=== PATIENT | female | born 1965 | race Caucasian/White ===

== ENCOUNTER 2018-12-31 16:38 | Observation (INO) | payer OTHER, SELFPAY ==
[2018-12-31] VITALS (7 sets, daily range): BP systolic 120–144; BP diastolic 64–93; PULSE 82–109; RESP 14–21; TEMP 36.4; O2SAT 91–100; BMI 42.2; BMI 41.8
[2018-12-31 17:20] LABS: Basophils # 0.1 K/mm3 (0-0.2); Basophils % 0.3 % (0.1-2.0); Eosinophils # 0.4 K/mm3 (0.0-0.4); Hematocrit 40.8 % (37.0-47.0); Hemoglobin 13.9 g/dL (12.2-16.2); Lymphocytes # 6.3 K/mm3 (0.7-4.5); Mean Corpuscular HGB Conc 34.1 g/dL (31.8-35.4); Mean Corpuscular Hemoglobin 28.3 pg (27.0-31.2); Mean Platelet Volume 7.5 fl (7.4-10.4); Monocytes # 0.6 K/mm3 (0.1-1.0); Monocytes % 3.1 % (1.7-9.3); Neutrophils # 11.3 K/mm3 (1.8-7.8); Neutrophils % 60.6 % (37.0-80.0); Platelet Count 498 K/mm3 (142-424); Red Blood Count 4.92 M/mm3 (4.20-5.40); Red Cell Distribution Width 14.1 % (11.5-17.5); White Blood Count 18.6 K/mm3 (4.8-10.8)
[2018-12-31 17:26] LABS: MANUAL DIFFERENTIAL MANUAL DIFFERENTIAL (MANUAL DIFF)
[2018-12-31 17:28] LABS: Alanine Aminotransferase 29 U/L (12-78); Albumin Level 3.5 gm/dL (3.4-5.0); Albumin/Globulin Ratio 0.8 (1.1-1.8); Alkaline Phosphatase 102 U/L (46-116); Anion Gap 17.6 mEq/L (5-15); Aspartate Amino Transferase 12 U/L (15-37); Bilirubin,Total 0.5 mg/dL (0.2-1.0); Blood Urea Nitrogen 8 mg/dL (7-18); Calcium 8.3 mg/dL (8.5-10.1); Carbon Dioxide 22 mmol/L (21.0-32.0); Chloride 102 mmol/L (98-107); Creatinine Clearance Estimated 74 mL/min (50-200); Estimated Glomerular Filt Rate 88 ml/min (>60); GFR (African American) 106 ML/MIN (>60); Globulin 4.2 gm/dl (1.3-3.2); Glucose 120 mg/dL (74-106); Lipase 122 u/L (73-393); Potassium 3.6 mmoL/L (3.5-5.1); Sodium 138 mmol/L (136-145); Total Protein,Serum 7.7 gm/dL (6.4-8.2)
[2018-12-31 17:28] LABS: Microscopic, Urine URINE MICROSCOPIC (MICROSCOPIC)
[2018-12-31 17:30] LABS: Appearance,Urine CLOUDY (Clear); Bilirubin,Urine Negative (Negative); Blood, Urine Negative (Negative); Color,Urine YELLOW (Yellow); Glucose,Urine (UA) Negative (Negative); Ketones,Urine TRACE (Negative); Leukocyte Esterase,Urine Negative (Negative); Nitrate,Urine Negative (Negative); PH,Urine 6.5 (5.0-8.5); Protein,Urine TRACE (Negative)
--- NOTE | 2018-12-31 17:33 | HMH.EDGENADL ---
ED Disposition Clinical Impression: Cholelithiasis Qualifiers: Cholelithiasis location: gallbladder Cholecystitis presence: with cholecystitis Cholecystitis acuity: acute Biliary obstruction: without biliary obstruction Qualified Code(s): K80.00 - Calculus of gallbladder with acute cholecystitis without obstruction Disposition: Admitted as Observation Condition on Discharge: Fair Additional Instructions: Stop taking Augmentin and start taking the Levaquin and Flagyl. Percocet as needed for pain. Follow-up with Dr. Kaplan and Marisela in the office tomorrow. Additional instructions for ABDOMINAL PAIN: Return immediately if worsening abdominal pain, vomiting, shortness of breath, fever, or jaundice. Additional instructions for CONTROLLED SUBSTANCES: You have been prescribed a medication that is a controlled substance. Controlled substances include pain medications known as opiates and sedative nerve medications known as benzodiazepines. Tramadol and gabapentin are also controlled substances. Some common opiates include: Codeine (such as Tylenol #3) Hydrocodone (Vicodin, Lortab, Lorcet, [place]) Oxycodone (Percocet, Percodan, Oxycodone, Oxy IR) Some common benzodiazepines include: Diazepam (Valium) Lorazepam (Ativan) Alprazolam (Xanax) Clonazepam (Klonopin) Oxazepam (Serax) All of these controlled substances are highly addictive and frequently abused. Misuse can and frequently does lead to addiction as well as overdose and . Medication should be stored in a locked cabinet or other secure storage unit. Do not store the medication in a motor vehicle. Short term supplies, 3 days or less, are prescribed because of the highly addictive nature of the medication. Any of the controlled substance medication NOT taken should be disposed of properly and NOT SAVED. The recommended method of disposing of unused medications is: Place the medicines in a sealable plastic bag. If the medicine is a solid, crush it or add water to dissolve it. Add something undesirable (cat litter, coffee grounds, etc.) Dispose of sealed bag in household trash Do not flush or pour unused medicines down a sink or drain. Controlled substances should not be shared, given away or sold. Because of the addictive nature and frequent abuse, these medications are sometimes stolen. These medications should be kept in a safe place where they cannot be stolen. Do not keep them in your car or purse. Lost or stolen prescriptions for controlled substances WILL NOT BE REFILLED in this emergency department, regardless of whether a police report was filed. Referrals: Provider,Referral, [Primary Care Provider] - - Critical Care Critical Care Time: No Attestation: On 12/31/18, the high probability of a clinically significant, sudden or life threatening deterioration of the following system(s) required my full and direct attention, intervention and personal management. The time I documented below is in addition to time spent performing reported procedures but includes the following listed in this critical care notation. Medical Decision Making - Frederick Inquiry Pt receiving controlled substance: Yes Frederick was queried for this patient: Yes Reference #:: [id number] Risks and benefits of using a controlled substance: were discussed with pt by me Comment: 1 rx 15 norco 7.5mg 05/02/18 Vital Signs: 12/31/18 16:46 12/31/18 17:09 12/31/18 18:26 Temperature 97.5 F L Temperature Source Oral Pulse Rate [Right Brachial] 109 H 92 H 92 H Respiratory Rate 15 19 18 Blood Pressure [Right Arm] 144/93 H 137/67 122/69 Blood Pressure Mean [Right Arm] 110 90 86 Blood Pressure Source [Right Arm] Automatic Cuff Automatic Cuff Automatic Cuff Blood Pressure Position [Right Arm] Sitting Sitting 02 Sat by Pulse Oximetry 98 95 94 L Oxygen Delivery Method Room Air Room Air Room Air 12/31/18 18:54 12/31/18 19:54 Temperature Temperature Source Pulse R
--- NOTE | 2018-12-31 17:35 | PC.NURSE ---
KANDY MCMAHON at bedside.
[2018-12-31 17:37] LABS: Bacteria,Urine 3+ /lpf; Squamous Epithelial Cell,Urine 20-50 #/hpf (0-5)
[2018-12-31 17:39] LABS: Lymphocytes % 29 % (10-50); Monocytes % 2 % (2-9); Neutrophils % 60 % (42-76); Platelet Estimate Slight Increase; RBC Morphology Normal; Total Cells Counted 100
--- NOTE | 2018-12-31 17:41 | CT_ITS ---
CT abdomen pelvis w con CLINICAL INDICATION: Epigastric pain with nausea ITS.REASON: abdominal pain ORDERING PHYSICIAN: Tom Estrada MD PATIENT AGE: 53 years COMPARISON: None TECHNIQUE: Axial images obtained with sagittal and coronal reformats. All CT scans at the facility use one or more dose reduction, viz: automated exposure control, ma/kV adjustment per patient size (including targeted exams where dose is matched to indication, i.e. head), or iterative reconstruction technique. PROCEDURE: Oral Contrast: None IV Contrast: 75 mL's Optiray 350. FINDINGS: Lower thorax: Minimal atelectatic change in the right middle lobe. ABDOMEN: There is a small amount of gas in distal esophagus and could be seen with reflux. The liver, spleen, adrenal glands, and pancreas have an unremarkable appearance. No renal or ureteral calculi. Suggesting stones and/or sludge. No evidence of appendicitis or diverticulitis. There are scattered fluid-filled loops of small bowel with a few air-fluid levels. There are some scattered air-fluid levels: Left. These loops are nondistended and could be due to enteritis. No pelvic mass abnormal fluid collection or focal inflammatory changes pelvis. No acute bony anomalies. IMPRESSION: 1. Possible enterocolitis. 2. Gallstones and/or gallbladder sludge.
--- NOTE | 2018-12-31 17:55 | PC.NURSE ---
Pt to radiology
--- NOTE | 2018-12-31 18:32 | PC.NURSE ---
paged microelectronics engineer surgeon @ this time
[2018-12-31 20:31] LABS: Troponin I < 0.02 ng/ml (0.00-0.06)
--- NOTE | 2018-12-31 21:39 | PC.NURSE ---
PT ARRIVED TO FLOOR VIA @ [phone]
[2019-01-01 04:00] VITALS: BP 103/56; PULSE 74; RESP 16; TEMP 36.6; O2SAT 93
--- NOTE | 2019-01-01 04:40 | PC.NURSE ---
Pt A&O x3. Resting in bed at this time. Has c/o N/V this shift. Was medicated per oct. Pt is currently NPO for AM consult. VSS at this time. Call light within reach. No other concerns at this time. Will continue to monitor.
[2019-01-01 05:21] VITALS: BMI 42.1
[2019-01-01 06:08] LABS: Basophils % 0.1 % (0.1-2.0); Eosinophils # 0.1 K/mm3 (0.0-0.4); Hematocrit 37.5 % (37.0-47.0); Hemoglobin 12.4 g/dL (12.2-16.2); Lymphocytes # 2.9 K/mm3 (0.7-4.5); Lymphocytes % 21.8 % (10-50); Mean Corpuscular HGB Conc 33.2 g/dL (31.8-35.4); Mean Corpuscular Hemoglobin 28.6 pg (27.0-31.2); Mean Corpuscular Volume 86.1 fl (81-99); Mean Platelet Volume 7.5 fl (7.4-10.4); Monocytes # 0.3 K/mm3 (0.1-1.0); Monocytes % 2.4 % (1.7-9.3); Neutrophils # 9.8 K/mm3 (1.8-7.8); Neutrophils % 74.6 % (37.0-80.0); Platelet Count 351 K/mm3 (142-424); Red Blood Count 4.35 M/mm3 (4.20-5.40); Red Cell Distribution Width 14.2 % (11.5-17.5); White Blood Count 13.1 K/mm3 (4.8-10.8)
[2019-01-01 06:21] LABS: Alanine Aminotransferase 55 U/L (12-78); Albumin Level 3.1 gm/dL (3.4-5.0); Albumin/Globulin Ratio 0.8 (1.1-1.8); Alkaline Phosphatase 117 U/L (46-116); Anion Gap 10.9 mEq/L (5-15); Aspartate Amino Transferase 38 U/L (15-37); Bilirubin,Total 0.5 mg/dL (0.2-1.0); Blood Urea Nitrogen 9 mg/dL (7-18); Carbon Dioxide 27 mmol/L (21.0-32.0); Chloride 105 mmol/L (98-107); Creatinine Clearance Estimated 91 mL/min (50-200); Estimated Glomerular Filt Rate 105 ml/min (>60); GFR (African American) 127 ML/MIN (>60); Globulin 3.8 gm/dl (1.3-3.2); Glucose 118 mg/dL (74-106); Lipase 143 u/L (73-393); Potassium 3.9 mmoL/L (3.5-5.1); Sodium 139 mmol/L (136-145); Total Protein,Serum 6.9 gm/dL (6.4-8.2)
[2019-01-01 06:41] LABS: Calcium 7.4 mg/dL (8.5-10.1)
--- NOTE | 2019-01-01 07:20 | HMH.PHAVTE ---
[facility] VTE Monitoring - Patient Demographics Admission date: 12/31/18 Report Date: 01/01/19 Time: 07:20 Allergies/Adverse Reactions: Patient Allergies No Known Allergies Allergy (Verified 12/31/18 16:56) Height: 1.6 m Weight: 108.012 kg Patient Problems: Current Active Problems (Updated 12/31/18 @ 18:44 by Tom Estrada MD) Cholelithiasis (Acute) - VTE Risk Labs: VTE Related Lab Results Hgb 12.4 g/dL (12.2-16.2) D 01/01/19 05:58 Hct 37.5 % (37.0-47.0) 01/01/19 05:58 Plt Count 351 K/mm3 (142-424) D 01/01/19 05:58 BUN 9 mg/dL (7-18) 01/01/19 05:58 Creatinine 0.60 mg/dL (0.55-1.02) 01/01/19 05:58 Estimated Creat Clear 91 mL/min (50-200) 01/01/19 05:58 VTE Score: 2 VTE Risk Level: Low Risk - Prophylaxis VTE Prophylaxis Ordered?: Yes Types of VTE Prophylaxis: TEDS Knee High Location of Applied Device: Bilateral Lower Extremeties - VTE Diagnosis Confirmed Treatment or plan recommended: Continue Current Treatment
[2019-01-01 08:00] VITALS: BP 113/58; PULSE 78; RESP 16; TEMP 36.7; O2SAT 100
--- NOTE | 2019-01-01 08:07 | HMH.GSCON ---
*Admission Date: 12/31/18 *Chief complaint: Abdominal pain *History of present illness: Patient is a pleasant 53-year-old female. She states that over the past month she has had episodes of epigastric pain. This occasionally radiates through to the back. It often occurs postprandially. It has usually been self-limited. However, yesterday she had developed the symptoms and they were much more severe. She was seen and evaluated in the emergency department. She underwent a CT scan with IV contrast which revealed findings of possible enterocolitis and gallstones. Initially consideration was being given for possible outpatient management however her symptoms were refractory and persistent and she was therefore admitted for inpatient management. She has had ongoing soreness in the epigastrium. She has not had any associated diarrhea. She has had some bloating and excessive belching. Review of Systems - Review of Systems Review of systems:: pertinent systems reviewed and negative unless documented below [facility] History Medical History: Denies:: Cancer, Diabetes Mellitus Type 1, Diabetes Mellitus Type 2, MRSA *Have you ever received a pneumonia vaccine?: No *Have you received a flu vaccine this season?: No Other Medical History: Reports: Sinus Problems Other Surgeries: Yes: Colonoscopy Amputation: No - *Social History Educational Level: Attended College Smoking Status: Former smoker Tobacco Type: cigarettes Alcohol Intake: never *Occupational Status:: employed Housing: house *Travel in the last 8 weeks: None - Psychiatric History Expresses thoughts of harming self/others: None Suicide Plan Description: No Plan Family Hx:: No significant family history Meds Home Medications Medication Instructions Recorded Confirmed Type Escitalopram Oxalate [Lexapro] 20 mg PO DAILY 12/31/18 12/31/18 History Allergies Allergy/AdvReac Type Severity Reaction Status Date / Time No Known Allergies Allergy Verified 12/31/18 16:56 Exam Vital signs and Labs for Last 24 Hours: Temp Pulse Resp BP Pulse Ox 97.9 F 74 16 103/56 L 93 L 01/01/19 04:00 01/01/19 04:00 01/01/19 04:00 01/01/19 04:00 01/01/19 04:00 Laboratory Results - last 24 hr 12/31/18 17:05: WBC 18.6 H, RBC 4.92, Hgb 13.9, Hct 40.8, MCV 83.0, MCH 28.3, MCHC 34.1, RDW 14.1, Plt Count 498 H, MPV 7.5, Neut % (Auto) 60.6, Lymph % (Auto) 34.0, Wise % (Auto) 3.1, Eos % (Auto) 2.0, Baso % (Auto) 0.3, Neut # (Auto) 11.3 H, Lymph # (Auto) 6.3 H, Wise # (Auto) 0.6, Eos # (Auto) 0.4, Baso # (Auto) 0.1, Total Counted 100, Neutrophils % (Manual) 60, Lymphocytes % (Manual) 29, Atypical Lymphs % 9.0, Monocytes % (Manual) 2, Platelet Estimate Slight increase, RBC Morphology Normal 12/31/18 17:05: Sodium 138, Potassium 3.6, Chloride 102, Carbon Dioxide 22, Anion Gap 17.6 H, BUN 8, Creatinine 0.70, Estimated Creat Clear 74, Estimated GFR 88, Est GFR ( Amer) 106, Glucose 120 H, Calcium 8.3 L, Total Bilirubin 0.5, AST 12 L, ALT 29, Alkaline Phosphatase 102, Total Protein 7.7, Albumin 3.5, Globulin 4.2 H, Albumin/Globulin Ratio 0.8 L, Lipase 122 12/31/18 17:05: Troponin I < 0.02 12/31/18 17:20: Urine Color Yellow, Urine Appearance Cloudy, Urine pH 6.5, Ur Specific [place] 1.020, Urine Protein Trace, Urine Glucose (UA) Negative, Urine Ketones Trace, Urine Blood Negative, Urine Nitrate Negative, Urine Bilirubin Negative, Urine Urobilinogen 1.0, Ur Leukocyte Esterase Negative, Urine WBC 5-10, Ur Squamous Epith Cells 20-50, Urine Bacteria 3+ 01/01/19 05:58: WBC 13.1 H D, RBC 4.35, Hgb 12.4 D, Hct 37.5, MCV 86.1, MCH 28.6, MCHC 33.2, RDW 14.2, Plt Count 351 D, MPV 7.5, Neut % (Auto) 74.6, Lymph % (Auto) 21.8, Wise % (Auto) 2.4, Eos % (Auto) 1.0, Baso % (Auto) 0.1, Neut # (Auto) 9.8 H, Lymph # (Auto) 2.9, Wise # (Auto) 0.3, Eos # (Auto) 0.1, Baso # (Auto) 0.0 01/01/19 05:58: Sodium 139, Potassium 3.9, Chloride 105, Carbon Dioxide 27 D, Anion Gap 10.9, BUN 9, Creatinine 0.60, Estimated Creat
--- NOTE | 2019-01-01 08:11 | P.CONS_ITS ---
*Admission Date: 12/31/18 *Chief complaint: Abdominal pain *History of present illness: Patient is a pleasant 53-year-old female. She states that over the past month she has had episodes of epigastric pain. This occasionally radiates through to the back. It often occurs postprandially. It has usually been self-limited. However, yesterday she had developed the symptoms and they were much more severe. She was seen and evaluated in the emergency department. She underwent a CT scan with IV contrast which revealed findings of possible enterocolitis and gallstones. Initially consideration was being given for possible outpatient management however her symptoms were refractory and persistent and she was therefore admitted for inpatient management. She has had ongoing soreness in the epigastrium. She has not had any associated diarrhea. She has had some bloating and excessive belching. Review of Systems - Review of Systems Review of systems:: pertinent systems reviewed and negative unless documented below [facility] History Medical History: Denies:: Cancer, Diabetes Mellitus Type 1, Diabetes Mellitus Type 2, MRSA *Have you ever received a pneumonia vaccine?: No *Have you received a flu vaccine this season?: No Other Medical History: Reports: Sinus Problems Other Surgeries: Yes: Colonoscopy Amputation: No - *Social History Educational Level: Attended College Smoking Status: Former smoker Tobacco Type: cigarettes Alcohol Intake: never *Occupational Status:: employed Housing: house *Travel in the last 8 weeks: None - Psychiatric History Expresses thoughts of harming self/others: None Suicide Plan Description: No Plan Family Hx:: No significant family history Meds Home Medications Medication Instructions Recorded Confirmed Type Escitalopram Oxalate [Lexapro] 20 mg PO DAILY 12/31/18 12/31/18 History Allergies Allergy/AdvReac Type Severity Reaction Status Date / Time No Known Allergies Allergy Verified 12/31/18 16:56 Exam Vital signs and Labs for Last 24 Hours: Temp Pulse Resp BP Pulse Ox 97.9 F 74 16 103/56 L 93 L 01/01/19 04:00 01/01/19 04:00 01/01/19 04:00 01/01/19 04:00 01/01/19 04:00 Laboratory Results - last 24 hr 12/31/18 17:05: WBC 18.6 H, RBC 4.92, Hgb 13.9, Hct 40.8, MCV 83.0, MCH 28.3, MCHC 34.1, RDW 14.1, Plt Count 498 H, MPV 7.5, Neut % (Auto) 60.6, Lymph % (Auto) 34.0, [place] % (Auto) 3.1, Eos % (Auto) 2.0, Baso % (Auto) 0.3, Neut # (Au to) 11.3 H, Lymph # (Auto) 6.3 H, [place] # (Auto) 0.6, Eos # (Auto) 0.4, Baso # (Auto) 0.1, Total Counted 100, Neutrophils % (Manual) 60, Lymphocytes % (Manual) 29, Atypical Lymphs % 9.0, Monocytes % (Manual) 2, Platelet Estimate Slight increase, RBC Morphology Normal 12/31/18 17:05: Sodium 138, Potassium 3.6, Chloride 102, Carbon Dioxide 22, Anion Gap 17.6 H, BUN 8, Creatinine 0.70, Estimated Creat Clear 74, Estimated GFR 88, Est GFR ( Amer) 106, Glucose 120 H, Calcium 8.3 L, Total Bilirubin 0.5, AST 12 L, ALT 29, Alkaline Phosphatase 102, Total Protein 7.7, Albumin 3.5, Globulin 4.2 H, Albumin/Globulin Ratio 0.8 L, Lipase 122 12/31/18 17:05: Troponin I < 0.02 12/31/18 17:20: Urine Color Yellow, Urine Appearance Cloudy, Urine pH 6.5, Ur Specific [place] 1.020, Urine Protein Trace, Urine Glucose (UA) Negative, Urine Ketones Trace, Urine Blood Negative, Urine Nitrate Negative, Urine Bilirubin Negative, Urine Urobilinogen 1.0, Ur Leukocyt
--- NOTE | 2019-01-01 08:11 | PC.NURSE ---
Pt c/o rash that was itching on BUE, BLE this am. Pt was assessed. Erythema and raised rash noted to upper arms and (R) leg, under knee. MD notified. Benadryl 25 mg IV ordered and administered.
--- NOTE | 2019-01-01 08:31 | US_ITS ---
US gallbladder HISTORY: ITS.REASON: upper abdominal pain with nausea and vomiting; ORDERING PHYSICIAN: Eufemia Lowe MD PATIENT AGE: 53 years Comparison: None FINDINGS: PANCREAS: Unremarkable. No obvious mass or abnormal fluid collection. No ductal dilatation LIVER: No focal liver lesions demonstrated. Homogeneous echogenicity. No intrahepatic biliary ductal dilatation evident RIGHT KIDNEY: Unremarkable. Normal size and echogenicity. No hydronephrosis GALLBLADDER: There are multiple gallstones present. No gallbladder wall thickening, pericholecystic fluid, or biliary dilatation is evident. Common bile duct is normal at 3 mm. The technologist reports a positive sonographic Jaimes sign. IMPRESSION: Cholelithiasis
--- NOTE | 2019-01-01 08:34 | HMH.HP ---
*Admission Date: 12/31/18 <PowersBrandy desai Constantino 01/01/19 08:43> *Chief complaint: Abdominal pain <PriyaBrandy 01/01/19 08:43> *History of present illness: Ms. Page is a 53-year-old female who is usually very healthy who presented to [facility] emergency room after experiencing severe right upper quadrant/epigastric pain. She states the pain was severe and radiated through to her back. This was associated with nausea and vomiting. She states she has been having bloating and periodic episodes of the epigastric pain for the past month. This was worse last week after eating a salad but then progressed yesterday. She was evaluated in the emergency room and had a CT scan with IV contrast which revealed possible enterocolitis and gallstones. Initially she was going to be treated on an outpatient basis but her symptoms continued and she was thus admitted for inpatient management. She receives her health care from a family physician in [facility]. In the emergency room she received a fluid bolus, IV Flagyl, Dilaudid , morphine, Toradol, and Zofran. She was then admitted with a surgical consult. This a.m. she has abdominal soreness and has vomited since being admitted. She denies diarrhea, constipation, hematemesis, bloody stools. She describes bloating with flatus and excessive belching. She states she did sleep some last night after receiving all the pain medicine. She remains n.p.o. and will have right upper quadrant ultrasound this a.m. She has been seen by surgeon Dr. Antonio. <Brandy Powers 01/01/19 08:56> [facility] History Medical History: Denies:: Atherosclerotic Heart Disease, Cancer, Chronic Obstructive Pulmonary Disease (COPD), Diabetes Mellitus Type 1, Diabetes Mellitus Type 2, MRSA <Brandy Powers 01/01/19 08:43> *Have you ever received a pneumonia vaccine?: No <Brandy Powers 01/01/19 08:43> *Have you received a flu vaccine this season?: No <Brandy Powers 01/01/19 08:43> Other Medical History: Reports: Sinus Problems. Denies: Arthritis <Brandy Powers 01/01/19 08:43> Comment:: environmental allergies <Brandy Powers /20/19 08:43> Other Surgeries: Yes: Colonoscopy <PriyaRbandy Constantino 01/01/19 08:43> Amputation: No <PriyaBrandy 01/01/19 08:43> - *Social History Educational Level: Attended College <Brandy Powers Constantino 01/01/19 08:43> Smoking Status: Former smoker <PriyaBrandy 01/01/19 08:43> Tobacco Type: cigarettes <PriyaBrandy 01/01/19 08:43> Alcohol Intake: never <PriyaBrandy Constantino 01/01/19 08:43> *Occupational Status:: employed <PriyaBrandy Constantino 01/01/19 08:43> Housing: house <PriyaBrandy 01/01/19 08:43> *Travel in the last 8 weeks: None <PowersBrandy Constantino 01/01/19 08:43> - Psychiatric History Expresses thoughts of harming self/others: None <Powers,Brandy - 01/01/19 08:43> Suicide Plan Description: No Plan <PriyaBrandy Constantino 01/01/19 08:43> Family Hx:: No significant family history <PowersBrandy Constantino 01/01/19 08:43> Review of Systems - Constitutional Denies fever(s) <PowersBrandy 01/01/19 08:43> - ENT Reports nasal congestion, Reports nasal discharge, Reports post nasal drip, Denies dizziness, Denies ear pain, Denies sore throat <PriyaBrandy 01/01/19 08:43> - *Cardiovascular Denies chest pain, Denies generalized swelling, Denies shortness of breath when lying down <Powers,Brandy - 01/01/19 08:43> - *Respiratory Denies chest congestion, Denies cough, Denies shortness of breath <PriyaBrandy 01/01/19 08:43> - *Gastrointestinal Reports abdominal pain, Reports belching, Reports bloating, Reports heartburn, Reports excessive passing of gas, Reports heartburn, Reports nausea, Reports vomiting, Denies change in bowel habits, Denies change in stools, Denies coffee ground vomit, Denies constipation, Denies loose stools, Denies difficulty swallowing, Denies incontinent of stools, Denies vomiting blood, Denies bright, red blood in stools, Denies loose
--- NOTE | 2019-01-01 08:40 | P.HP_ITS ---
*Admission Date: 12/31/18 <PowersBrandy desai Constantino 01/01/19 08:43> *Chief complaint: Abdominal pain <PriyaBrandy 01/01/19 08:43> *History of present illness: Ms. Page is a 53-year-old female who is usually very healthy who presented to [facility] emergency room after experiencing severe right upper quadrant/epigastric pain. She states the pain was severe and radiated through to her back. This was associated with nausea and vomiting. She states she has been having bloating and periodic episodes of the epigastric pain for the past month. This was worse last week after eating a salad but then progressed yesterday. She was evaluated in the emergency room and had a CT scan with IV contrast which revealed possible enterocolitis and gallstones. Initially she was going to be treated on an outpatient basis but her symptoms continued and she was thus admitted for inpatient management. She receives her health care from a family physician in [facility]. In the emergency room she received a fluid bolus, IV Flagyl, Dilaudid , morphine, Toradol, and Zofran. She was then admitted with a surgical consult. This a.m. she has abdominal soreness and has vomited since being admitted. She denies diarrhea, constipation, hematemesis, bloody stools. She describes bloating with flatus and excessive belching. She states she did sleep some last night after receiving all the pain medicine. She remains n.p.o. and will have right upper quadrant ultrasound this a.m. She has been seen by surgeon Dr. Antonio. <Brandy Powers 01/01/19 08:56> [facility] History Medical History: Denies:: Atherosclerotic Heart Disease, Cancer, Chronic Obstructive Pulmonary Disease (COPD), Diabetes Mellitus Type 1, Diabetes Mellitus Type 2, MRSA <Brandy Powers 01/01/19 08:43> *Have you ever received a pneumonia vaccine?: No <Brandy Powers 01/01/19 08:43> *Have you received a flu vaccine this season?: No <Brandy Powers 01/01/19 08:43> Other Medical History: Reports: Sinus Problems. Denies: Arthritis <Brandy Powers 01/01/19 08:43> Comment:: environmental allergies <Brandy Powers 01/01/19 08:43> Other Surgeries: Yes: Colonoscopy <Brandy Powers 01/01/19 08:43> Amputation: No <Brandy Powers 01/01/19 08:43> - *Social History Educational Level: Attended College <Powers,Brandy - 01/01/19 08:43> Smoking Status: Former smoker <Brandy Powers 01/01/19 08:43> Tobacco Type: cigarettes <Brandy Powers 01/01/19 08:43> Alcohol Intake: never <Brandy Powers 01/01/19 08:43> *Occupational Status:: employed <Brandy Powers 01/01/19 08:43> Housing: house <PowersBrandy desai 01/01/19 08:43> *Travel in the last 8 weeks: None <Brandy Powers 01/01/19 08:43> - Psychiatric History Expresses thoughts of harming self/others: None <Brandy Powers 01/01/19 08:43> Suicide Plan Description: No Plan <Brandy Powers 01/01/19 08:43> Family Hx:: No significant family history <Brandy Powers 01/01/19 08:43> Review of Systems - Constitutional Denies fever(s) <Brandy Powers 01/01/19 08:43> - ENT Reports nasal congestion, Reports nasal discharge, Reports post nasal drip, Denies dizziness, Denies ear pain, Denies sore throat <Brandy Powers 01/01/19 08:43> - *Cardiovascular Denies chest pain, Denies generalized swelling, Denies shortness of breath when lying down <Brandy Powers 01/01/19 08:43> - *Respiratory Denies chest congestion, Denies cough, Denies shortness of breath <Brandy Powers 01/01/19 08:43> - *Gastrointestinal Reports abdominal pain, Reports belching, Reports bloating, Reports heartburn, Reports excessive passing of gas
--- NOTE | 2019-01-01 10:23 | PC.NURSE ---
1015 patient taken to radiology per w/c for gallbladder u/s. returned via wheelchair without incident. patient ambulated to bed, denies pain or nausea at this time.
--- NOTE | 2019-01-01 10:44 | HMH.PHAINT ---
MEDICATION RECONCILIATION COMPLETED ON PATIENT USING EXTERNAL FILL HISTORY FROM PHARMACY AND PATIENT INTERVIEW. -CALI WALLACE, DAISYD
--- NOTE | 2019-01-01 12:10 | PC.NURSE ---
1100 patient reported increasing itching and rash with welts getting worse. red raised welts over several areas of the body, dr. rodas notiifed and new orders received and carried out. currently inflammation and itching decreased.
--- NOTE | 2019-01-01 12:29 | P.PN_ITS ---
Subjective Narrative: Patient's abdominal pain is persistent with occasional exacerbations. She underwent gallbladder ultrasound which reveals gallstones with normal common bile duct. She had a positive sonographic Jaimes's sign. Exam Vital signs and Labs for Last 24 Hours: Temp Pulse Resp BP Pulse Ox 98.0 F 78 16 113/58 L 100 01/01/19 08:00 01/01/19 08:00 01/01/19 08:00 01/01/19 08:00 01/01/19 08:00 Laboratory Results - last 24 hr 12/31/18 17:05: WBC 18.6 H, RBC 4.92, Hgb 13.9, Hct 40.8, MCV 83.0, MCH 28.3, MCHC 34.1, RDW 14.1, Plt Count 498 H, MPV 7.5, Neut % (Auto) 60.6, Lymph % (Auto) 34.0, [place] % (Auto) 3.1, Eos % (Auto) 2.0, Baso % (Auto) 0.3, Neut # (Auto) 11.3 H, Lymph # (Auto) 6.3 H, [place] # (Auto) 0.6, Eos # (Auto) 0.4, Baso # (Auto) 0.1, Total Counted 100, Neutrophils % (Manual) 60, Lymphocytes % (Manual) 29, Atypical Lymphs % 9.0, Monocytes % (Manual) 2, Platelet Estimate Slight increase, RBC Morphology Normal 12/31/18 17:05: Sodium 138, Potassium 3.6, Chloride 102, Carbon Dioxide 22, Anion Gap 17.6 H, BUN 8, Creatinine 0.70, Estimated Creat Clear 74, Estimated GFR 88, Est GFR ( Amer) 106, Glucose 120 H, Calcium 8.3 L, Total Bilirubin 0.5, AST 12 L, ALT 29, Alkaline Phosphatase 102, Total Protein 7.7, Albumin 3.5, Globulin 4.2 H, Albumin/Globulin Ratio 0.8 L, Lipase 122 12/31/18 17:05: Troponin I < 0.02 12/31/18 17:20: Urine Color Yellow, Urine Appearance Cloudy, Urine pH 6.5, Ur Specific [place] 1.020, Urine Protein Trace, Urine Glucose (UA) Negative, Urine Ketones Trace, Urine Blood Negative, Urine Nitrate Negative, Urine Bilirubin Negative, Urine Urobilinogen 1.0, Ur Leukocyte Esterase Negative, Urine WBC 5- 10, Ur Squamous Epith Cells 20-50, Urine Bacteria 3+ 01/01/19 05:58: WBC 13.1 H D, RBC 4.35, Hgb 12.4 D, Hct 37.5, MCV 86.1, MCH 28.6, MCHC 33.2, RDW 14.2, Plt Count 351 D, MPV 7.5, Neut % (Auto) 74.6, Lymph % (Auto) 21.8, [place] % (Auto) 2.4, Eos % (Auto) 1.0, Baso % (Auto) 0.1, Neut # (Auto) 9.8 H, Lymph # (Auto) 2.9, [place] # (Auto) 0.3, Eos # (Auto) 0.1, Baso # (Auto) 0.0 01/01/19 05:58: Sodium 139, Potassium 3.9, Chloride 105, Carbon Dioxide 27 D, Anion Gap 10.9, BUN 9, Creatinine 0.60, Estimated Creat Clear 91, Estimated GFR 105, Est GFR ( Amer) 127, Glucose 118 H, Calcium 7.4 L D, Total Bilirubin 0.5, AST 38 H D, ALT 55 D, Alkaline Phosphatase 117 H, Total Protein 6.9, Albumin 3.1 L D, Globulin 3.8 H, Albumin/Globulin Ratio 0.8 L, Lipase 143 I & O for Last 24 hours: Intake & Output 12/30/18 12/31/18 01/01/19 01/02/19 11:59 11:59 11:59 11:59 Intake Total 1250 / 1250 Balance 1250 / 1250 Weight 238 lb 2 oz - *Routine Abdominal Exam Present: tenderness Progress Note: A&P (1) Infectious colitis, enteritis and gastroenteritis Status: Acute Current Visit: Yes (2) Cholelithiasis Status: Acute Current Visit: Yes (3) Chronic cholecystitis Status: Acute Current Visit: Yes Assessment and Plan for All Diagnoses:: Patient has clinical cholecystitis. Plan to continue antibiotics today. She may have a clear liquid diet this afternoon if desired and tentatively plan for cholecystectomy tomorrow. Will plan to recheck liver function tests due to slight elevation since evaluation in the emergency department which may be secondary to hepatic irritation secondary to gallbladder inflammation.
--- NOTE | 2019-01-01 13:08 | PC.NURSE ---
123 patient c/o abdomenal pain, dilaudid given per order. patient rash and itching improving
--- NOTE | 2019-01-01 13:10 | PC.NURSE ---
1215 clarified continuation of abx since developing rash. continuation confirmed and will monitor closely
--- NOTE | 2019-01-01 14:09 | PC.NURSE ---
patient resting in bed with eyes closed, no inflammation, itching or pain noted at this time. instructed agin not to get out of bed without calling for assistance. patient voiced understanding. iv clean dry intact, no signs of infiltration
[2019-01-01 15:18] VITALS: BMI 42.2
[2019-01-01 16:00] VITALS: BP 113/51; PULSE 80; RESP 16; TEMP 36.8; O2SAT 91
--- NOTE | 2019-01-01 16:22 | PC.NURSE ---
surgical consent obtained and signed after confirming with patient that dr. miranda explained the procedure and risks. i had patient tell me in her own words what the procedure is going to consist of.
--- NOTE | 2019-01-01 19:19 | PC.NURSE ---
report given to billy
--- NOTE | 2019-01-01 19:30 | PC.NURSE ---
During bedside report, it was noted that pt's upper eyelids appeared to be slightly red, this is noted to be new per pt & Nancy Lr RN. Pt denies any facial itching of swelling, difficulty breathing or swallowing. Pt given a cold wash cloth and pt teaching given to pt for worsening s/s of reaction. Pt stated her understanding. Pt is due for a PO dose of benadryl prior to her IV ABX treatment for 2100 med pass.
[2019-01-01 20:00] VITALS: BP 114/51; PULSE 76; RESP 18; TEMP 36.2; O2SAT 93; O2SAT 98
--- NOTE | 2019-01-01 20:30 | PC.NURSE ---
Pt assessed and noted to have increased redness around eyes, edema to upper eyelid,edema and redness to upper lip, and tingling to lower lip and tongue. Pt denies any SOA, tongue edema or trouble swallowing. Dr. Mckeon lesson instructor for Dr. Lowe, new orders received to hold IV ABX for now, Levaquin & Flagyl IV. Give Benadryl 25mg IV 1x dose now, hold the PO dose. Pt medicated per MAR with topical to the scattered areas with itching, welts, and rash. VSS, pt given another cold wash cloth & has no other concerns at this time, will continue to monitor.
--- NOTE | 2019-01-01 20:55 | PC.NURSE ---
Pt reassessed at this time. Pt has no new c/o at this time. Edema to upper eyelid & upper lip is improving and pt denies any further tingling to lower lip & tongue. Will continue to monitor.
--- NOTE | 2019-01-01 22:45 | PC.NURSE ---
Pt c/o right hand swelling. Pt assessed and r hand noted to be slightly puffy from thumb to posterior hand. IV is in r hand, #20 with NS @ 125ml/hr running. IVF held at this time due to assessing of IV patency. There is no redness noted around the IV site or hand. near the hub it is tender to palpation but soft surrounding the site, no streaking or cold/heat noted in hand or in arm. Pt encouraged to keep hand elevated and on a pillow. Pt states that she is Very afraid of needles , and they had to stick me 3 times earlier and it about killed me . This RN stated her understanding of pt's concerns and fears. This RN explained to pt that we would flush the IV 1st and ensure the patency and if not would need to proceed with a new IV. Pt began to hold her breathe, pt encouraged to take slow deep breaths. Pt visibly anxious and upset, requesting the best you have to place her new IV. Pt assured that we will do the best we can and would look very carefully before using any needles. May GOMEZ s/w pt and assessed IV site and noted it to be patent but pt refusing IV fluids at this time. May Levine RN took over pt, report given at this time.
[2019-01-02] VITALS (27 sets, daily range): BP systolic 103–163; BP diastolic 53–76; PULSE 73–100; RESP 12–23; TEMP 36.1–45; O2SAT 90–95; BMI 43.2
--- NOTE | 2019-01-02 05:28 | PC.NURSE ---
PT ALERT AND ORIENTED. PT C/O ITCHING ON INNER THIGHS, ARMS, AND NECK. IV ABX NOT GIVEN LAST NIGHT PER DR. OLSON ORDER PT HAD SWELLING/TINGLING LIPS AND SOME PUFFINESS AROUND EYES. PT RECEIVED 25MG IV BENADRYL, COLD WASH CLOTH GIVEN. EYES AND LIPS BETTER, BUT STILL HAS REDNESS AND ITCHING, SO ONE TIME DOSE 50MG IV BENADRYL GIVEN. PT SLEPT WELL. PT IS VERY ANXIOUS ABOUT IV'S AND NEEDLES. IV REMAINS IN RIGHT HAND, # 20. FLUSHES WELL W/O REDNESS OR EDEMA, BUT FLUIDS ON HOLD TONIGHT PER PT'S REQUEST. PT SCHEDULED FOR [facility] ABOUT NOON TODAY. A.M. LABS ORDERED FOR TODAY WELL. CONSENT IS SIGNED AND ON CHART. NO C/O PAIN. RESPIRATIONS EVEN AND UNLABORED ON ROOM AIR. BREATH SOUNDS CLEAR. PT STABLE. WILL CONTINUE TO MONITOR. REPORT TO BE GIVEN TO ONCOMING NURSE.
--- NOTE | 2019-01-02 05:59 | PC.NURSE ---
0600 courtesy check; pt on right side asleep
--- NOTE | 2019-01-02 06:53 | HMH.GSPN ---
Subjective Narrative: Still with RUQ/epigastric pain. Patient complained of left eye and upper lip swelling followed by tingling. Antibiotics discontinued. Exam Vital signs and Labs for Last 24 Hours: Temp Pulse Resp BP Pulse Ox 98.2 F 81 18 117/57 L 92 L 01/02/19 04:00 01/02/19 04:00 01/02/19 04:00 01/02/19 04:00 01/02/19 04:00 I & O for Last 24 hours: Intake & Output 12/30/18 12/31/18 01/01/19 01/02/19 11:59 11:59 11:59 11:59 Intake Total 1250 / 1250 3045 / 3045 Balance 1250 / 1250 3045 / 3045 Weight 238 lb 2 oz 244 lb 4 oz Microbiology Reports for the Last 24 Hours: Microbiology 12/31/18 17:20 Urine,Clean Catch Urine Culture - Preliminary NO GROWTH AFTER 24 HOURS - Constitutional no acute distress - *Routine Abdominal Exam Present: soft, tenderness Progress Note: A&P (1) Infectious colitis, enteritis and gastroenteritis Status: Acute Current Visit: Yes (2) Cholelithiasis Status: Acute Current Visit: Yes (3) Chronic cholecystitis Status: Acute Current Visit: Yes Assessment and Plan for All Diagnoses:: Cholecystectomy today.
--- NOTE | 2019-01-02 06:57 | HMH.GSPN ---
Subjective Narrative: Sleeping Exam Vital signs and Labs for Last 24 Hours: Temp Pulse Resp BP Pulse Ox 98.2 F 81 18 117/57 L 92 L 01/02/19 04:00 01/02/19 04:00 01/02/19 04:00 01/02/19 04:00 01/02/19 04:00 I & O for Last 24 hours: Intake & Output 12/30/18 12/31/18 01/01/19 01/02/19 11:59 11:59 11:59 11:59 Intake Total 1250 / 1250 3045 / 3045 Balance 1250 / 1250 3045 / 3045 Weight 238 lb 2 oz 244 lb 4 oz Microbiology Reports for the Last 24 Hours: Microbiology 12/31/18 17:20 Urine,Clean Catch Urine Culture - Preliminary NO GROWTH AFTER 24 HOURS - Constitutional no acute distress Progress Note: A&P (1) Infectious colitis, enteritis and gastroenteritis Status: Acute Current Visit: Yes (2) Cholelithiasis Status: Acute Current Visit: Yes (3) Chronic cholecystitis Status: Acute Current Visit: Yes Assessment and Plan for All Diagnoses:: EGD today
[2019-01-02 07:36] LABS: Basophils % 0.1 % (0.1-2.0); Hematocrit 36.3 % (37.0-47.0); Hemoglobin 11.9 g/dL (12.2-16.2); Lymphocytes # 2.1 K/mm3 (0.7-4.5); Lymphocytes % 14.6 % (10-50); Mean Corpuscular HGB Conc 32.7 g/dL (31.8-35.4); Mean Corpuscular Hemoglobin 28.3 pg (27.0-31.2); Mean Corpuscular Volume 86.6 fl (81-99); Mean Platelet Volume 7.6 fl (7.4-10.4); Monocytes # 0.3 K/mm3 (0.1-1.0); Neutrophils # 11.8 K/mm3 (1.8-7.8); Neutrophils % 83.3 % (37.0-80.0); Platelet Count 366 K/mm3 (142-424); Red Blood Count 4.19 M/mm3 (4.20-5.40); Red Cell Distribution Width 14.2 % (11.5-17.5); White Blood Count 14.1 K/mm3 (4.8-10.8)
[2019-01-02 07:47] LABS: Alanine Aminotransferase 36 U/L (12-78); Albumin Level 2.8 gm/dL (3.4-5.0); Albumin/Globulin Ratio 0.8 (1.1-1.8); Alkaline Phosphatase 96 U/L (46-116); Amylase 29 U/L (25-115); Anion Gap 10.8 mEq/L (5-15); Aspartate Amino Transferase 10 U/L (15-37); Bilirubin,Total 0.4 mg/dL (0.2-1.0); Blood Urea Nitrogen 8 mg/dL (7-18); Calcium 7.8 mg/dL (8.5-10.1); Carbon Dioxide 27 mmol/L (21.0-32.0); Chloride 106 mmol/L (98-107); Creatinine Clearance Estimated 81 mL/min (50-200); Creatinine,Serum 0.64 mg/dL (0.55-1.02); Estimated Glomerular Filt Rate 97 ml/min (>60); GFR (African American) 118 ML/MIN (>60); Globulin 3.6 gm/dl (1.3-3.2); Glucose 147 mg/dL (74-106); Lipase 68 u/L (73-393); Potassium 3.8 mmoL/L (3.5-5.1); Sodium 140 mmol/L (136-145); Total Protein,Serum 6.4 gm/dL (6.4-8.2)
--- NOTE | 2019-01-02 08:48 | HMH.ACPN2 ---
<Brandy Powers - Last Filed: 01/02/19 08:49> Internal Medicine - PN: Subj *Date: 01/02/19 *Time: 08:49 Interval history: Patient is feeling better this morning. She states she vomits whenever she gets out of bed. She plans to take a shower this morning. Abdominal pain is less but still present requiring pain medicine which she just received. She was able to retain some clear liquids yesterday. Her allergic rash has resolved after Benadryl. She has been seen by Dr. Antonio and lap cholecystectomy is planned for this noon. Exam Vital signs and Labs for Last 24 Hours: Temp Pulse Resp BP Pulse Ox 97.7 F 73 18 105/53 L 93 L 01/02/19 08:00 01/02/19 08:00 01/02/19 08:00 01/02/19 08:00 01/02/19 08:00 Laboratory Results - last 24 hr 01/02/19 07:00: WBC 14.1 H, RBC 4.19 L, Hgb 11.9 L, Hct 36.3 L, MCV 86.6, MCH 28.3, MCHC 32.7, RDW 14.2, Plt Count 366, MPV 7.6, Neut % (Auto) 83.3 H, Lymph % (Auto) 14.6, [place] % (Auto) 2.0, Eos % (Auto) 0.0 L, Baso % (Auto) 0.1, Neut # (Auto) 11.8 H, Lymph # (Auto) 2.1, [place] # (Auto) 0.3, Eos # (Auto) 0.0, Baso # (Auto) 0.0 01/02/19 07:00: Sodium 140, Potassium 3.8, Chloride 106, Carbon Dioxide 27, Anion Gap 10.8, BUN 8, Creatinine 0.64, Estimated Creat Clear 81, Estimated GFR 97, Est GFR ( Amer) 118, Glucose 147 H, Calcium 7.8 L, Total Bilirubin 0.4, AST 10 L D, ALT 36 D, Alkaline Phosphatase 96, Total Protein 6.4, Albumin 2.8 L, Globulin 3.6 H, Albumin/Globulin Ratio 0.8 L, Amylase 29, Lipase 68 L I & O for Last 24 hours: Intake & Output 12/30/18 12/31/18 01/01/19 05/21/19 11:59 11:59 11:59 11:59 Intake Total 1250 / 1250 3055 / 3055 Balance 1250 / 1250 3055 / 3055 Weight 238 lb 2 oz 244 lb 4 oz Microbiology Reports for the Last 24 Hours: Microbiology 12/31/18 17:20 Urine,Clean Catch Urine Culture - Final Multiple organisms, suggests contamination. Radiology Reports for the Last 24 Hours: 01/01/2019 gallbladder ultrasound IMPRESSION: Cholelithiasis - Constitutional no acute distress Comments: Appears comfortable. Has just received pain medicine. - *Routine Respiratory Exam Present: CTA bilaterally (Anteriorly and posteriorly) - *Routine Cardiovascular Exam Present: RRR - *Routine Abdominal Exam Present: soft, normoactive bowel sounds, tenderness (Much less tender this morning with no guarding). Absent: guarding - *Routine Extremities Exam Absent: edema, calf tenderness - *Routine Neurological Exam Present: alert, oriented X3 Assessment and Plan (1) Infectious colitis, enteritis and gastroenteritis Current visit: Yes Status: Acute Category: Medical Code(s): A09 - Infectious gastroenteritis and colitis, unspecified (2) Cholelithiasis Current visit: Yes Status: Acute Category: Medical Code(s): K80.20 - Calculus of gallbladder without cholecystitis without obstruction (3) Chronic cholecystitis Current visit: Yes Status: Acute Category: Medical Code(s): K81.1 - Chronic cholecystitis - Assessment and plan all Dx Assessment and Plan for all problems:: Lap cholecystectomy planned for around 12 noon. <Eufemia Lowe - Last Filed: 01/02/19 10:06> Internal Medicine - PN: Subj *Date: 01/02/19 *Time: 10:04 Exam Vital signs and Labs for Last 24 Hours: Temp Pulse Resp BP Pulse Ox 97.7 F 73 18 105/53 L 93 L 01/02/19 08:00 01/02/19 08:00 01/02/19 08:00 01/02/19 08:00 01/02/19 08:00 Laboratory Results - last 24 hr 01/02/19 07:00: WBC 14.1 H, RBC 4.19 L, Hgb 11.9 L, Hct 36.3 L, MCV 86.6, MCH 28.3, MCHC 32.7, RDW 14.2, Plt Count 366, MPV 7.6, Neut % (Auto) 83.3 H, Lymph % (Auto) 14.6, [place] % (Auto) 2.0, Eos % (Auto) 0.0 L, Baso % (Auto) 0.1, Neut # (Auto) 11.8 H, Lymph # (Auto) 2.1, [place] # (Auto) 0.3, Eos # (Auto) 0.0, Baso # (Auto) 0.0 01/02/19 07:00: Sodium 140, Potassium 3.8, Chloride 106, Carbon Dioxide 27, Anion Gap 10.8, BUN 8, Creatinine 0.64, Estimat
--- NOTE | 2019-01-02 11:44 | PC.NURSE ---
pt transported to pre op at this time via bed
--- NOTE | 2019-01-02 13:20 | HMH.OPNOTE ---
Date of procedure: 01/02/19 Pre-op Diagnosis:: Symptomatic gallstones Post-op Diagnosis:: Same Procedure performed:: Laparoscopic cholecystectomy Surgeon:: Silviano Antonio MD Anesthesia: LANA Estimated blood loss (mL): 20 Clinical Note:: Patient is a pleasant 53-year-old female. She states that over the past month she has had episodes of epigastric pain. This occasionally radiates through to the back. It often occurs postprandially. It has usually been self-limited. However, 2 days ago she had developed these symptoms and they were much more severe. She was seen and evaluated in the emergency department. She underwent a CT scan with IV contrast which revealed findings of possible enterocolitis and gallstones. Initially consideration was being given for possible outpatient management however her symptoms were refractory and persistent and she was therefore admitted for inpatient management. She has had ongoing soreness in the epigastrium and right upper quadrant. She has not had any associated diarrhea. She has had some bloating and excessive belching. She underwent gallbladder ultrasound yesterday which revealed multiple gallstones with normal common bile duct. Her symptoms persisted and plan was made to proceed with laparoscopic possibly open cholecystectomy. Operative findings:: She had a somewhat enlarged somewhat fatty liver. She had a significantly distended gallbladder which was edematous. There were multiple moderate sized gallstones. Operative note:: Consent was obtained and patient was taken to the operating room. She was given preoperative intravenous antibiotics. In the operating room she was placed in a supine position. General anesthesia was induced via endotracheal tube. Her abdomen was prepped and draped in the standard surgical fashion. Subumbilical skin incision was made and while performing abdominal wall lift Veress needle was inserted. CO2 pneumoperitoneum was achieved to 15 mmHg. 11 mm optical trocar was inserted at the umbilicus. She was positioned in reverse Trendelenburg left side down. A couple of 5 mm trochars were inserted in the right upper abdomen. 10 mm trocar was inserted in the epigastrium. She had a somewhat enlarged liver which was somewhat fatty. Gallbladder was identified and grasped and retracted anteriorly over the dome of the liver. Gallbladder was appreciably distended and somewhat edematous. There were some omental adhesions to the gallbladder which were taken down using blunt dissection. The infundibulum of the gallbladder was retracted anterior laterally. Blunt dissection was carried out at the neck of the gallbladder. The cystic duct was ultimately identified, isolated. It was dissected free. Cystic duct was multiply clipped and then divided. Cystic artery was carefully coagulated with DYANA ultrasonic harmonic luisana and divided. Gallbladder was dissected free from the liver in a retrograde fashion using DYANA ultrasonic harmonic luisana. Gallbladder was placed within an Endo Catch retrieval device and removed from the peritoneal cavity via the umbilical trocar site which required some stretching of the fascia for delivery of the distended gallbladder with multiple stones. Gallbladder fossa was then irrigated and aspirated until clear. There appeared to be good hemostasis. Trochars were removed as CO2 pneumoperitoneum was evacuated. Fascia at the umbilicus was closed with several interrupted 0 Vicryl sutures. Local anesthetic was infiltrated. Skin was closed with 4-0 Monocryl in subcuticular fashion. Steri-Strips and dressings were applied. Patient tolerated procedure well with no immediate complications. Condition: stable Disposition: PACU Specimens:: Gallbladder and contents Complications:: None immediately apparent
--- NOTE | 2019-01-02 13:34 | HMH.ANESII ---
[facility] Anesthesia Record Part II Discharge Time: 14:00 Destination: Medical Surgical Department PACU nurse assessment reviewed?: Yes Patient Condition:: Good Anesthesia Complications:: None Swallowing reflex intact?: Yes Cyanosis?: No
--- NOTE | 2019-01-02 13:35 | P.PN_ITS ---
[facility] Anesthesia Record Part I Intake, IV Amount: 1,000 Estimated blood loss (mL): 10 Urine output (mL): 0 Blood Products used (#): none Blood Pressure: 136/68 SaO2: 93 Pulse Rate: 99 Respiratory Rate: 18 Temperature: 98.0 F Patient is:: Drowsy, Nasal O2, Stable Stable to PACU at:: 13:30
[2019-01-02 14:23] LABS: HIV AB(1/2) Exposures Non-Reactive (Non-Reactiv)
--- NOTE | 2019-01-02 15:33 | SUR.PHASEI ---
1340: pt wakes enough to ask where she is, ask if she's had surgery, no c/o pain, and then falls back to sleep
--- NOTE | 2019-01-02 17:42 | PC.NURSE ---
pt has had no changes from previous assessment besides new incision sites. pt has stated no pain since arrival back to floor. incision sites are dressed with scant amount of drainage noted. v/s/s. pt is currently on 3LNC with o2 sat in low 90's. pt has been instructed on deep breathing and coughing. iv patent and infusing per order. call light in reach. pt has been eating and drinking and tolerating well. will continue to monitor pt condition
--- NOTE | 2019-01-02 18:57 | PC.NURSE ---
pt reporting pain in upper abdomen. prn med given per oct. pt educated on pain control and deep breathing and cough. pt is belching frequently.
--- NOTE | 2019-01-02 21:24 | PC.NURSE ---
2100 courtesy check, pt supine awake, took vanilla pudding for a snack, no other needs voiced
[2019-01-03 00:01] VITALS: BP 117/55; PULSE 74; RESP 18; TEMP 36.3; O2SAT 94
[2019-01-03 04:00] VITALS: BP 122/58; PULSE 61; RESP 18; TEMP 36.8; O2SAT 91; BMI 43.2
--- NOTE | 2019-01-03 06:14 | PC.NURSE ---
PT ALERT AND ORIENTED. C/O PAIN WITH PAIN MEDS GIVEN 3 TIMES THIS SHIFT OF THIS TIME. NO C/O NAUSEA. DID C/O SOME ITCHING ON HER NECK ONCE LAST NIGHT, BUT NO WHELPS NOTED. ALSO, PREVIOUS WHELPS THAT WERE ON BILATERAL INNER THIGHS ARE BARELY NOTICEABLE. PT REFUSED CREAM FOR ITCHING LAST NIGHT. STATED SHE DIDN'T THINK SHE NEEDED IT. IV SECURE AND PATENT. INFUSING NS@ 125/HR. ALSO CONTINUES ON IV ABX. PT DOES NOT HAVE ANY LABS ORDERED FOR THIS A.M. PT HAS BEEN BELCHING A LOT, PASSING SOME GAS. ABDOMINAL DSGS X4 FROM LAP [facility] YESTERDAY ARE C/D/I. PT RESPIRATIONS EVEN AND UNLABORED ON ROOM AIR. BREATH SOUNDS EQUAL AND CLEAR THROUGHOUT. PT STABLE. STATES SHE THINKS SHE MAY GET TO GO HOME TODAY. WILL CONTINUE TO MONITOR. REPORT TO BE GIVEN TO ONCOMING NURSE.
--- NOTE | 2019-01-03 06:33 | PC.NURSE ---
0600 courtesy check, pt supine asleep
--- NOTE | 2019-01-03 07:20 | PC.NURSE ---
REPORT GIVEN TO Bonifacio SHEARER
--- NOTE | 2019-01-03 07:24 | HMH.GSPN ---
Subjective Patient reports: feels better Narrative: Patient states that she feels much better. She has been tolerating a diet. Exam Vital signs and Labs for Last 24 Hours: Temp Pulse Resp BP Pulse Ox 98.2 F 61 18 122/58 L 91 L 01/03/19 04:00 01/03/19 04:00 01/03/19 04:00 01/03/19 04:00 01/03/19 04:00 Laboratory Results - last 24 hr 01/02/19 07:00: WBC 14.1 H, RBC 4.19 L, Hgb 11.9 L, Hct 36.3 L, MCV 86.6, MCH 28.3, MCHC 32.7, RDW 14.2, Plt Count 366, MPV 7.6, Neut % (Auto) 83.3 H, Lymph % (Auto) 14.6, [place] % (Auto) 2.0, Eos % (Auto) 0.0 L, Baso % (Auto) 0.1, Neut # (Auto) 11.8 H, Lymph # (Auto) 2.1, [place] # (Auto) 0.3, Eos # (Auto) 0.0, Baso # (Auto) 0.0 01/02/19 07:00: Sodium 140, Potassium 3.8, Chloride 106, Carbon Dioxide 27, Anion Gap 10.8, BUN 8, Creatinine 0.64, Estimated Creat Clear 81, Estimated GFR 97, Est GFR ( Amer) 118, Glucose 147 H, Calcium 7.8 L, Total Bilirubin 0.4, AST 10 L D, ALT 36 D, Alkaline Phosphatase 96, Total Protein 6.4, Albumin 2.8 L, Globulin 3.6 H, Albumin/Globulin Ratio 0.8 L, Amylase 29, Lipase 68 L 01/02/19 13:50: HIV 1&2 Antibody Rapid Non-reactive I & O for Last 24 hours: Intake & Output 12/31/18 01/01/19 01/02/19 01/03/19 11:59 11:59 11:59 11:59 Intake Total 1250 / 1250 3155 / 3155 4349 / 4349 Balance 1250 / 1250 3155 / 3155 4349 / 4349 Weight 238 lb 2 oz 244 lb 4 oz 244 lb 4.002 oz Microbiology Reports for the Last 24 Hours: Microbiology 12/31/18 17:20 Urine,Clean Catch Urine Culture - Final Multiple organisms, suggests contamination. - *Routine Abdominal Exam Present: soft Comments: Dressings are intact. She has some incisional soreness at the umbilical incision. Progress Note: A&P (1) Infectious colitis, enteritis and gastroenteritis Status: Acute Current Visit: Yes (2) Cholelithiasis Status: Acute Current Visit: Yes (3) Chronic cholecystitis Status: Acute Current Visit: Yes Assessment and Plan for All Diagnoses:: Discharge home
--- NOTE | 2019-01-03 07:30 | HMH.DCSUM ---
General - General Admission date:: 12/31/18 Discharge date: 01/03/19 HPI HPI: Ms. Page is a 53-year-old female who is usually very healthy who presented to [facility] emergency room after experiencing severe right upper quadrant/epigastric pain. She states the pain was severe and radiated through to her back. This was associated with nausea and vomiting. She states she has been having bloating and periodic episodes of the epigastric pain for the past month. This was worse last week after eating a salad but then progressed yesterday. She was evaluated in the emergency room and had a CT scan with IV contrast which revealed possible enterocolitis and gallstones. Initially she was going to be treated on an outpatient basis but her symptoms continued and she was thus admitted for inpatient management. She receives her health care from a family physician in [facility]. In the emergency room she received a fluid bolus, IV Flagyl, Dilaudid , morphine, Toradol, and Zofran. She was then admitted with a surgical consult. She had persistent abdominal soreness and had vomited after being admitted. She denies diarrhea, constipation, hematemesis, bloody stools. She describes bloating with flatus and excessive belching. Of note, the patient has been treated with oral antibiotics for a dental abscess. Hospital Course Hospital Course: Patient was admitted for inpatient management from the emergency department. She was started on intravenous levofloxacin and metronidazole. She had persistent epigastric and right upper quadrant pain radiating through to her back with belching and some nausea. She underwent gallbladder ultrasound on 01/01/2019. This revealed multiple gallstones with normal common bile duct. There was a positive sonographic Jaimes sign. No sonographic evidence of acute cholecystitis. Was felt that she likely had clinical cholecystitis as well as findings of cholecystitis based on a persistent leukocytosis. In the evening of 01/01/2019 she had developed some itching and swelling of her lips. Her antibiotics were discontinued. On 01/02/2019 she was taken to the operating room at which time she underwent laparoscopic cholecystectomy. She was found to have a distended edematous but noninfected gallbladder. Please see operative dictation for complete details. Postoperatively she was admitted for inpatient convalescence. She did have some itching on her inner thighs and her shoulder area but this resolved with topical steroid. She was given a bland diet. She tolerated this well without any difficulty. The following morning she was feeling much better. She was tolerating a bland diet without issue. She had essential resolution of the epigastric right upper quadrant pain but had incisional soreness. Plan was made for discharge home at this time. Objective Vital signs: Temp Pulse Resp BP Pulse Ox 98.2 F 61 18 122/58 L 91 L 01/03/19 04:00 01/03/19 04:00 01/03/19 04:00 01/03/19 04:00 01/03/19 04:00 - *Routine Abdominal Exam Present: soft Comments: Some incisional tenderness. - Detailed Eye Exam Eyelids: Left normal inspection Results Labs on day of discharge: Labs from last 24 hours 01/02/19 01/02/19 01/02/19 13:50 07:00 07:00 WBC 14.1 H RBC 4.19 L Hgb 11.9 L Hct 36.3 L MCV 86.6 MCH 28.3 MCHC 32.7 RDW 14.2 Plt Count 366 MPV 7.6 Neut % (Auto) 83.3 H Lymph % (Auto) 14.6 [place] % (Auto) 2.0 Eos % (Auto) 0.0 L Baso % (Auto) 0.1 Neut # (Auto) 11.8 H Lymph # (Auto) 2.1 [place] # (Auto) 0.3 Eos # (Auto) 0.0 Baso # (Auto) 0.0 Sodium 140 Potassium 3.8 Chloride 106 Carbon Dioxide 27 Anion Gap 10.8 BUN 8 Creatinine 0.64 Estimated Creat Clear 81 Estimated GFR 97 Est GFR ( Amer) 118 Glucose 147 H Calcium 7.8 L Total Bilirubin 0.4 AST 10 L D ALT
--- NOTE | 2019-01-03 07:35 | P.DS_ITS ---
General - General Admission date:: 12/31/18 Discharge date: 01/03/19 HPI HPI: Ms. Page is a 53-year-old female who is usually very healthy who presented to [facility] emergency room after experiencing severe right upper quadrant/epigastric pain. She states the pain was severe and radiated through to her back. This was associated with nausea and vomiting. She states she has been having bloating and periodic episodes of the epigastric pain for the past month. This was worse last week after eating a salad but then progressed yesterday. She was evaluated in the emergency room and had a CT scan with IV contrast which revealed possible enterocolitis and gallstones. Initially she was going to be treated on an outpatient basis but her symptoms continued and she was thus admitted for inpatient management. She receives her health care from a family physician in [place]. In the emergency room she received a fluid bolus, IV Flagyl, Dilaudid , morphine, Toradol, and Zofran. She was then admitted with a surgical consult. She had persistent abdominal soreness and had vomited after being admitted. She denies diarrhea, constipation, hematemesis, bloody stools. She describes bloating with flatus and excessive belching. Of note, the patient has been treated with oral antibiotics for a dental abscess. Hospital Course Hospital Course: Patient was admitted for inpatient management from the emergency department. She was started on intravenous levofloxacin and metronidazole. She had persistent epigastric and right upper quadrant pain radiating through to her back with belching and some nausea. She underwent gallbladder ultrasound on 01/01/2019. This revealed multiple gallstones with normal common bile duct. There was a positive sonographic Jaimes sign. No sonographic evidence of acute cholecystitis. Was felt that she likely had clinical cholecystitis as well as findings of cholecystitis based on a persistent leukocytosis. In the evening of 01/01/2019 she had developed some itching and swelling of her lips. Her antibiotics were discontinued. On 01/02/2019 she was taken to the operating room at which time she underwent laparoscopic cholecystectomy. She was found to have a distended edematous but noninfected gallbladder. Please see operative dictation for complete details. Postoperatively she was admitted for inpatient convalescence. She did have some itching on her inner thighs and her shoulder area but this resolved with topical steroid. She was given a bland diet. She tolerated this well without any difficulty. The following morning she was feeling much better. She was tolerating a bland diet without issue. She had essential resolution of the epigastric right upper quadrant pain but had incisional soreness. Plan was made for discharge home at this time. Objective Vital signs: Temp Pulse Resp BP Pulse Ox 98.2 F 61 18 122/58 L 91 L 01/03/19 04:00 01/03/19 04:00 01/03/19 04:00 01/03/19 04:00 01/03/19 04:00 - *Routine Abdominal Exam Present: soft Comments: Some incisional tenderness. - Detailed Eye Exam Eyelids: Left normal inspection Results Labs on day of discharge: Labs from last 24 hours 01/02/19 01/02/19 01/02/19 13:50 07:00 07:00 WBC 14.1 H RBC 4.19 L Hgb 11.9 L Hct 36.3 L MCV 86.6 MCH 28.3 MCHC 32.7 RDW 14.2
[2019-01-03 07:55] VITALS: BP 126/58; PULSE 78; RESP 15; TEMP 36.8; O2SAT 94
[2019-01-03 08:18] LABS: HIV Screen 4th Generation wRfx Non Reactive (Non Reactive); Hepatitis B Surface Antigen Negative (Negative)
--- NOTE | 2019-01-03 08:47 | HMH.ACPN2 ---
<Brandy Powers - Last Filed: 01/03/19 08:47> Internal Medicine - PN: Subj *Date: 01/03/19 *Time: 08:47 Interval history: Patient had lap cholecystectomy yesterday. She ate last night and this morning and did well without nausea, vomiting or abdominal pain. She denies chest pain and shortness of breath. She has ambulated to the bathroom without difficulty. She did sleep some last night. She is ready to go home. Exam Vital signs and Labs for Last 24 Hours: Temp Pulse Resp BP Pulse Ox 98.2 F 78 15 126/58 L 94 L 01/03/19 07:55 01/03/19 07:55 01/03/19 07:55 01/03/19 07:55 01/03/19 07:55 Laboratory Results - last 24 hr 01/02/19 13:50: HIV 1&2 Antibody Rapid Non-reactive I & O for Last 24 hours: Intake & Output 12/31/18 01/01/19 01/02/19 01/03/19 11:59 11:59 11:59 11:59 Intake Total 1250 / 1250 3155 / 3155 4589 / 4589 Balance 1250 / 1250 3155 / 3155 4589 / 4589 Weight 238 lb 2 oz 244 lb 4 oz 244 lb 4.002 oz Microbiology Reports for the Last 24 Hours: Microbiology 12/31/18 17:20 Urine,Clean Catch Urine Culture - Final Multiple organisms, suggests contamination. - Constitutional no acute distress - *Routine Respiratory Exam Present: CTA bilaterally (Anteriorly and posteriorly) - *Routine Cardiovascular Exam Present: RRR - *Routine Abdominal Exam Present: soft, normoactive bowel sounds. Absent: distended Comments: 3 dressings intact and dry. - *Routine Extremities Exam Absent: edema, calf tenderness - *Routine Neurological Exam Present: alert, oriented X3 Assessment and Plan (1) Infectious colitis, enteritis and gastroenteritis Current visit: Yes Status: Acute Category: Medical Code(s): A09 - Infectious gastroenteritis and colitis, unspecified (2) Cholelithiasis Current visit: Yes Status: Acute Qualifiers: Cholelithiasis location: gallbladder Cholecystitis presence: with cholecystitis Cholecystitis acuity: acute Biliary obstruction: without biliary obstruction Qualified Code(s): K80.00 - Calculus of gallbladder with acute cholecystitis without obstruction Category: Medical Code(s): K80.20 - Calculus of gallbladder without cholecystitis without obstruction (3) Chronic cholecystitis Current visit: Yes Status: Acute Category: Medical Code(s): K81.1 - Chronic cholecystitis - Assessment and plan all Dx Assessment and Plan for all problems:: Will be discharged today. See orders. <Eufemia Lowe - Last Filed: 01/03/19 08:58> Internal Medicine - PN: Subj *Date: 01/03/19 *Time: 08:58 Exam Vital signs and Labs for Last 24 Hours: Temp Pulse Resp BP Pulse Ox 98.2 F 78 15 126/58 L 94 L 01/03/19 07:55 01/03/19 07:55 01/03/19 07:55 01/03/19 07:55 01/03/19 07:55 Laboratory Results - last 24 hr 01/02/19 13:50: HIV 1&2 Antibody Rapid Non-reactive I & O for Last 24 hours: Intake & Output 12/31/18 01/01/19 01/02/19 01/03/19 11:59 11:59 11:59 11:59 Intake Total 1250 / 1250 3155 / 3155 4589 / 4589 Balance 1250 / 1250 3155 / 3155 4589 / 4589 Weight 238 lb 2 oz 244 lb 4 oz 244 lb 4.002 oz Microbiology Reports for the Last 24 Hours: Microbiology 12/31/18 17:20 Urine,Clean Catch Urine Culture - Final Multiple organisms, suggests contamination. Assessment and Plan (1) Infectious colitis, enteritis and gastroenteritis Current visit: Yes Status: Acute Category: Medical Code(s): A09 - Infectious gastroenteritis and colitis, unspecified (2) Cholelithiasis Current visit: Yes Status: Acute Qualifiers: Cholelithiasis location: gallbladder Cholecystitis presence: with cholecystitis Cholecystitis acuity: acute Biliary obstruction: without biliary obstruction Qualified Code(s): K80.00 - Calculus of gallbladder with acute cholecystitis without obstruction Category: Medical Code(s): K80.20 - Calculus of
[2019-01-03 10:07] LABS: Hep B Core Ab, Total Negative (Negative); Hepatitis C Antibody 0.8 s/co ratio (0.0-0.9)
--- NOTE | 2019-01-03 15:51 | HMH.PHAINT ---
DISCHARGE COUNSELING--PATIENT COUNSELED ON D/C MEDICATIONS
== END 2019-01-03 09:28 | disposition home or self-care (01) ==
LOC: ER 20:05 → 2ND 20:15
PROVIDERS: Surgery; Admitting Provider Emergency Medicine; Emergency Provider Emergency Medicine; Visit Provider Emergency Medicine
PROC: 0FT44ZZ Resection of Gallbladder, Percutaneous Endoscopic Approach (ICD-10-PCS; CPT 47562; principal; 2019-01-02 12:00)
DX: K80.10 Calculus of gallbladder with chronic cholecystitis without obstruction (principal); A09 Infectious gastroenteritis and colitis, unspecified; K04.7 Periapical abscess without sinus; L29.9 Pruritus, unspecified; R22.0 Localized swelling, mass and lump, head; Z87.891 Personal history of nicotine dependence; Z79.899 Other long term (current) drug therapy; Z87.440 Personal history of urinary (tract) infections
CPT/HCPCS: 47562; 36415; 74177; 76705; 80053; 81001; 82150; 83690; 84484; 85007; 85025; 86703; 86704; 87086; 87340; 87380; 93005; 96365; 96366; 96375; 96376; 99284; G0378; G0432; J1956; J2405; J2710; Q9967

== ENCOUNTER → 2019-02-28 09:19 | Outpatient (CLI) | payer OTHER, SELFPAY ==
--- NOTE | 2019-02-28 09:23 | MM_ITS ---
MM Dig screening mamm BI w/CAD ORDERING PHYSICIAN : Eufemia Lowe MD PATIENT AGE: 54 years GENDER: Female COMPARISON: Prior studies from [facility] Bilateral mammogram October 2016 INDICATION: Routine: SCREENING. No hormones no new complaints noncontributory family history. TECHNIQUE: Standard CC and MLO images were obtained. R2 CAD reviewed. FINDINGS: Lower density breast with residual minimal fibroglandular elements bilateral. RIGHT BREAST: The small smooth 5 mm nodular density at the lateral right breast are similar to previous outside mammograms-. No change here... This area labeled A Also at the lateral breast on today's cc view only there is a 6 mm less well-defined nodular density laterally with slight irregular margins. This seems to dissipates on the MLO view. There is a density was seen previous outside cc view but was projected much more lateral due on the prior study likely due to differences in positioning/ projection & likely due to its more superior location. When differences technique and projection are considered probably these areas are stable. However suggest follow-up to confirm stable. No new Of significant concern.. LEFT BREAST:Stable appearance with no new areas of concern. IMPRESSION: .............................. 1.... Left mammogram. Unremarkable. Follow-up mammogram in one year 2.... Right mammogram:. Suggest follow right mammogram 6 months Small focal areas density lateral right breast labeled B, strongly favor most likely a stable minimal density compared to previous studies. However significant different position on cc view likely due to due variations of positioning/projection & technique. Thus to better confirm stability, given its slightly different position and slight irregular margins suggest 6-8 month follow-up right mammogram. BI-RADS Category: 3 Probably Benign Finding Short Term Follow-up RECOMMENDED FOLLOW-UP: 6M 6 MONTH FOLLOW-UP (A letter has been sent to the patient regarding results of the study.)
== END ==
PROVIDERS: PCP Emergency Medicine; Visit Provider Emergency Medicine
DX: Z12.31 Encounter for screening mammogram for malignant neoplasm of breast (principal)
CPT/HCPCS: 77067